=== PATIENT | male | born 1995 | race Caucasian/White ===

== ENCOUNTER 2021-09-10 15:38 | Emergency (ER) | payer OTHER ==
[~2021-09-10] VITALS: Ht 175.3 cm; Wt 84.8 kg
[2021-09-10 15:58] VITALS: BP 142/92
[2021-09-10] MEDS ORDERED: IBUPROFEN 600 MG TAB PO ONE (16:15)
[2021-09-10] MEDS ORDERED: LIDOCAINE MPF 1% 10 MG/ML VIAL INJ ONE ×2 (16:20→17:10)
--- NOTE | 2021-09-10 16:40 | NUR ---
PT AMBULATED TO ER BED 9
--- NOTE | 2021-09-10 16:50 | NUR ---
consent for tdap obtained
--- NOTE | 2021-09-10 16:54 | NUR ---
mili genao at bedside at this time
[2021-09-10] MEDS ORDERED: BACI1PAC6 TP (17:24)
[2021-09-10] MEDS ORDERED: IBUP-2213 PO (17:24)
[2021-09-10] MEDS ORDERED: BACITRACIN OINT 500 UNITS/GM PKT TP ONE (17:30)
--- NOTE | 2021-09-10 17:40 | NUR ---
Patient discharged with v/s stable. Written and verbal after care instructions given and explained. Patient alert, oriented and verbalized understanding of instructions. Ambulatory with steady gait. All questions addressed prior to discharge. ID band removed. Patient advised to follow up with PMD. Rx of IBURPOFEN AND BACITRACIN given. Patient educated on indication of medication including possible reaction and side effects. Opportunity to ask questions provided and answered.
--- NOTE | 2021-09-10 18:00 | NUR ---
Chart checked and completed. The patient's care was reviewed and supervised by Chyna Whittington, RN, RN.
== END 2021-09-10 17:40 | disposition home or self-care (01) ==
LOC: MED 15:38
DX: S61.412A Laceration without foreign body of left hand, initial encounter (principal); R03.0 Elevated blood-pressure reading, without diagnosis of hypertension; Z79.899 Other long term (current) drug therapy; W26.0XXA Contact with knife, initial encounter; Y93.89 Activity, other specified; Y92.89 Other specified places as the place of occurrence of the external cause; Y99.0 Civilian activity done for income or pay
CPT/HCPCS: 12002; 90471; 90715; 99283; J2001